=== PATIENT | female | born 1990 | race Caucasian/White ===

== ENCOUNTER 2017-05-26 01:24 | Emergency (ER) | payer BC ==
[~2017-05-26] VITALS: Ht 165.1 cm; Wt 65.3 kg
[~2017-05-26 01:24] MED LIST: ACYC1CAP8 PO; MTR600X PO; PRENTAB26 PO
[2017-05-26 01:27] VITALS: TEMP 36.7; Ht 165.1 cm; Wt 65.3 kg
[2017-05-26] MEDS ORDERED: KETOROLAC TROMETHAMINE 30 MG/ML VIAL IV STA (01:38)
[2017-05-26] MEDS ORDERED: SODIUM CHLORIDE 0.9% 1000ML 1,000 ML IV STA (01:38)
[2017-05-26 01:40] VITALS: O2SAT 99
[2017-05-26] MEDS ORDERED: GI COCKTAIL PO STA (01:40)
[2017-05-26] MEDS ORDERED: RANITIDINE HCL SYRUP 150 MG/10 ML UDC PO ONE (01:45)
[2017-05-26] MEDS ORDERED: ALUMINUM/MAGNESIUM SUSP 30 ML UDC ONE (01:49)
[2017-05-26] MEDS ORDERED: LIDOCAINE HCL 2% VISC SOLN 20 ML UDC ONE (01:49)
[2017-05-26 01:58] LABS: BASO % 0.3 %; BASO ABS # 0.03 K/uL (0-0.2); COMPLETE YES; EOS % 0.9 %; HEMATOCRIT 41.2 % (37-47); IG% 0.2 %; LYMPH % 23.3 %; LYMPH ABS # 2.53 K/uL (1.2-3.4); MEAN CELL VOLUME 86.6 fL (80-100); MEAN CORPUSCULAR HEMOGLOBIN 27.7 pg (25-34); MEAN PLATELET VOLUME 10.9 fL (7.4-10.4); MONO % 8.5 %; NEUT % 66.8 %; PLATELET COUNT 278 K/uL (130-400); RED BLOOD COUNT 4.76 M/uL (4.2-5.4); WHITE BLOOD COUNT 10.86 K/uL (4.8-10.8)
[2017-05-26] MEDS ORDERED: BCPILLS PO (02:01)
[2017-05-26 02:19] LABS: BLOOD UREA NITROGEN 11 mg/dl (7-18); BUN/CREATININE RATIO 14.4 (10-20); CALCIUM 9.4 mg/dl (8.5-10.1); CARBON DIOXIDE 28 mmol/L (21-32); CHLORIDE 107 mmol/L (98-107); GLUCOSE 84 mg/dl (70-99); POTASSIUM 3.8 mmol/L (3.5-5.1); SODIUM 140 mmol/L (136-145)
--- NOTE | 2017-05-26 02:55 | EMERGENCY ROOM VISIT NOTE ---
History Report prepared by Mamiibvitaliy: Hudson Walker Under the Supervision of: Dr. Bjorn Jha M.D. First contact with patient: 01:30 Chief Complaint: CHEST PAIN Stated Complaint: CHEST PAIN History of Present Illness The patient is a 26 year old female who presents to the Emergency Room with complaints of persistent centralized chest pain beginning a few hours ago. She states that her pain moves into her throat when she leans forward. Her pain is worsened with deep breathing. The patient has no history of GERD. She denies eating a large amount of ibuprofen, drinking alcohol, or eating spicy foods. She denies any recent exposure to chemicals. The patient denies any recent injury, straining or trauma. She denies any nausea, back pain or abdominal pain. She denies any cold-like symptoms, but notes that her has some respiratory symptoms. The patient is on control. She denies any recent travel or surgery. Source of History: patient Onset: A few hours ago Position: chest (centralized) Timing: other (persistent) Modifying Factors (Worsening): breathing (deep) Associated Symptoms: No nausea, No abdominal pain, No back pain Review of Systems See HPI for pertinent positives & negatives. A total of 10 systems reviewed and were otherwise negative. Past Medical & Surgical Medical Problems: (1) Dyslipidemia (2) Genital Herpes Nos (3) Near syncope (4) Post-dates (5) R/O ROM Surgical Problems: (1) [place] teeth extracted Family History No pertinent family history stated. Social History Smoking Status: Never Smoker Alcohol Use: occasionally Marital Status: Housing Status: lives with family Occupation Status: employed Current/Historical Medications Scheduled Control Pills ( Control Pills), 1 TAB PO DAILY Allergies Coded Allergies: No Known Allergies (Verified , 05/26/17) Physical Exam Vital Signs Date Time Temp Pulse Resp B/P (MAP) Pulse Ox O2 Delivery O2 Flow Rate FiO2 05/26/17 03:04 65 17 105/71 99 Room Air 05/26/17 02:25 66 14 112/66 100 Room Air 05/26/17 01:40 99 Room Air 05/26/17 01:32 Room Air 05/26/17 01:27 36.7 84 16 138/87 99 Room Air Physical Exam GENERAL: Patient is well appearing and in no acute distress. HEENT: No acute trauma, normocephalic atraumatic, mucous membranes moist, no nasal congestion, no scleral icterus. NECK: No stridor, no adenopathy, no meningismus, trachea is midline. LUNGS: No dyspnea. Clear to auscultation and equal bilaterally. No wheeze, no rhonchi. HEART: Regular rate and rhythm. No murmurs, rubs, gallops appreciated. ABDOMEN: Soft, nontender, bowel sounds positive, no masses appreciated, no peritonitis. BACK: No midline tenderness, no CVA tenderness EXTREMITIES: Normal motion all extremities, no cyanosis, no edema. NEUROLOGIC: Alert and oriented, no acute motor or sensory deficits, no focal weakness, cranial nerves grossly intact. SKIN: No rash, no jaundice, no diaphoresis. Medical Decision & Procedures ER Provider Diagnostic Interpretation: X ray results are stated below per my interpretation: Chest: 1 view: No infiltrate, no effusion, normal cardiac border. Laboratory Results 05/26/17 01:40 Red Blood Count 4.76, Mean Corpuscular Volume 86.6, Mean Corpuscular Hemoglobin 27.7, Mean Corpuscular Hemoglobin Concent 32.0, Mean Platelet Volume 10.9, Neutrophils (%) (Auto) 66.8, Lymphocytes (%) (Auto) 23.3, Monocytes (%) (Auto) 8.5, Eosinophils (%) (Auto) 0.9, Basophils (%) (Auto) 0.3, Neutrophils # (Auto) 7.26, Lymphocytes # (Auto) 2.53, Monocytes # (Auto) 0.92, Eosinophils # (Auto) 0.10, Basophils # (Auto) 0.03 05/26/17 01:40 Test 05/26/17 01:40 White Blood Count 10.86 K/uL (4.8-10.8) Red Blood Count 4.76 M/uL (4.2-5.4) Hemoglobin 13.2 g/dL (12.0-16.0) Hematocrit 41.2 % (37-47) Mean Corpuscular Volume 86.6 fL (80-100) Mean Corpuscular Hemoglobin 27.7 pg (25-34) Mean Corpuscular Hemoglobin Concent 32.0 g/dl (32-36) Platelet Count 278 K/uL (130-400) Mean Platelet Volume 10.9 fL (7.4-10.4) Neutrophils (%) (Auto) 66.8 % Lymphocytes (%) (Auto) 23.3 % Monocytes (%) (Auto) 8.5 % Eosinophils (%) (Auto) 0.9 % Basophils (%) (Auto) 0.3 % Neutrophils # (Auto) 7.26 K/uL (1.4-6.5) Lymphocytes # (Auto) 2.53 K/uL (1.2-3.4) Monocytes # (Auto) 0.92 K/uL (0.11-0.59) Eosinophils # (Auto) 0.10 K/uL (0-0.5) Basophils # (Auto) 0.03 K/uL (0-0.2) RDW Standard Deviation 41.7 fL (36.4-46.3) RDW Coefficient of Variation 13.1 % (11.5-14.5) Immature Granulocyte % (Auto) 0.2 % Immature Granulocyte # (Auto) 0.02 K/uL (0.00-0.02) D-Dimer < 190 ug/L FEU (0-500) Anion Gap 5.0 mmol/L (3-11) Est Creatinine Clear Calc Drug Dose 94.2 ml/min Estimated GFR () 116.3 Estimated GFR (Non- 100.3 BUN/Creatinine Ratio 14.4 (10-20) Calcium Level 9.4 mg/dl (8.5-10.1) Troponin I < 0.015 ng/ml (0-0.045) Laboratory results as reviewed by me. Medications Administered Medications (Trade) Dose Ordered Sig/Dennis Route Start Time Stop Time Status Last Admin Dose Admin Ketorolac Tromethamine (Toradol Inj) 30 mg NOW STAT IV 05/26/17 01:38 05/26/17 01:39 DC 05/26/17 01:54 30 MG Sodium Chloride 1,000 ml @ 999 mls/hr Q1H1M STAT IV 05/26/17 01:38 05/26/17 02:38 DC 05/26/17 01:54 999 MLS/HR Ranitidine HCl (zANTac SYRUP) 150 mg NOW ONCE PO 05/26/17 01:45 05/26/17 01:46 DC 05/26/17 01:52 150 MG Al Hydroxide/Mg Hydroxide (Maalox Susp) 30 ml STK-MED ONCE .ROUTE 05/26/17 01:49 05/26/17 01:50 DC 05/26/17 01:52 30 ML Lidocaine HCl (Viscous Lidocaine 2% Soln) 20 ml STK-MED ONCE .ROUTE 05/26/17 01:49 05/26/17 01:50 DC 05/26/17 01:52 20 ML ECG Indication: chest pain Rate (beats per minute): 71 Rhythm: normal sinus Findings: no acute ischemic change, no ectopy Comparison ECG Date: July 15, 2015 Change: no significant change ED Course 0133: The patient was evaluated in room B4B. A complete history and physical exam was performed. 0138: Ordered Sodium Chloride 1000 ml @ 999 mls/hr IV, Toradol Inj 30 mg IV. 0140: Ordered GI cocktail 24 mL PO. 0145: Ordered Zantac Syrup 150 mg PO. 0253: Reevaluated the patient. She still has some discomfort with deep breathing , but feels better. Discussed results and discharge instructions: she verbalized understanding and agreement. The patient is ready for discharge. Medical Decision Differential: Cardiac Ischemia (STEMI, NSTEMI, Unstable Angina, etc), Aortic Dissection, Arrhythmia, Pulmonary Embolism, Pneumonia, Pneumothorax, MSK, Infectious, Pericarditis/Myocarditis, Esophageal Rupture, Gastrointestinal, amongst other pathologies entertained. Pleasnat 26 yr old femael with pleuritic anterior sternal chest pain. No effect with GI cocktail though mildly improved with toradol. CXR clear, ekg unremarkable, Trop negative, dimer negative and otherwise labs unremarkable. Suspect this is costochondritis. I do not fee this is ACS, Dissection, PE. Pericarditis unlikely with unremarkable ekg. No epigastric TTP. NSAIDs and rest/fluids at home. RTED if worsening or other concerns. Medication Reconcilliation Current Medication List: was personally reviewed by me Blood Pressure Screening Patient's blood pressure: Elevated blood pressure Blood pressure disposition: Elevated BP felt to be situational Impression Primary Impression: Anterior pleuritic pain Scribe Attestation The scribe's documentation has been prepared under my direction and personally reviewed by me in its entirety. I confirm that the note above accurately reflects all work, treatment, procedures, and medical decision making performed by me. Departure Information Dispostion Home / Self-Care Referrals Evon Easton (PCP) Patient Instructions ED Chest Pain Costochondritis, My [facility]
[2017-05-26 03:04] VITALS: BP 105/71; PULSE 65; O2SAT 99
--- NOTE | 2017-05-26 07:19 | DIAGNOSTIC IMAGING REPORT ---
SINGLE VIEW CHEST CLINICAL HISTORY: Atypical chest pain. FINDINGS: An AP, portable, upright chest radiograph is compared to chest x-ray and chest CT dated 07/15/2015. The examination is degraded by portable technique and patient rotation. The cardiomediastinal silhouette is unremarkable. The lungs and pleural spaces are clear. No pneumothorax is seen. The bony thorax is grossly intact. IMPRESSION: No active disease in the chest. Electronically signed by: Leonidas Arias M.D. 05/26/2017 7:18 AM Dictated Date/Time: 05/26/2017 7:17 AM
== END 2017-05-26 03:09 | disposition home or self-care (01) ==
LOC: C.EDB 01:25
DX: R07.81 Pleurodynia (principal); E78.5 Hyperlipidemia, unspecified

== ENCOUNTER 2017-11-28 17:30 | Emergency (ER) | payer BC, OTHER ==
[~2017-11-28] VITALS: Ht 160 cm; Wt 64.0 kg
[~2017-11-28 17:30] MED LIST changes: -ACYC1CAP8 PO; +BCPILLS PO; -MTR600X PO; -PRENTAB26 PO
[2017-11-28 17:31] VITALS: TEMP 36.3; Ht 160 cm; Wt 64.0 kg
[2017-11-28 17:58] VITALS: O2SAT 97
[2017-11-28 18:03] LABS: BASO % 0.4 %; BASO ABS # 0.03 K/uL (0-0.2); EOS % 1.1 %; EOS ABS # 0.09 K/uL (0-0.5); HEMATOCRIT 39.2 % (37-47); HEMOGLOBIN 13.4 g/dL (12.0-16.0); IG# 0.02 K/uL (0.00-0.02); LYMPH % 20.2 %; LYMPH ABS # 1.68 K/uL (1.2-3.4); MEAN CELL VOLUME 85.8 fL (80-100); MEAN CORPUSCULAR HEMOGLOBIN 29.3 pg (25-34); MEAN CORPUSCULAR HGB CONC 34.2 g/dl (32-36); MEAN PLATELET VOLUME 10.8 fL (7.4-10.4); MONO % 6.3 %; MONO ABS # 0.52 K/uL (0.11-0.59); NEUT % 71.8 %; NEUT ABS # 5.96 K/uL (1.4-6.5); PLATELET COUNT 253 K/uL (130-400); RED CELL DISTRIBUTION WIDTH CV 13.1 % (11.5-14.5); RED CELL DISTRIBUTION WIDTH SD 41.3 fL (36.4-46.3)
[2017-11-28] MEDS ORDERED: KETOROLAC TROMETHAMINE 30 MG/ML VIAL IV STA (18:04)
[2017-11-28 18:20] LABS: ALBUMIN 3.5 gm/dl (3.4-5.0); CALCIUM 8.7 mg/dl (8.5-10.1); CREATININE 0.83 mg/dl (0.60-1.20); POTASSIUM 3.7 mmol/L (3.5-5.1)
[2017-11-28 18:31] LABS: TOTAL PROTEIN 7.2 gm/dl (6.4-8.2)
--- NOTE | 2017-11-28 19:25 | DIAGNOSTIC IMAGING REPORT ---
CHEST 2 VIEWS ROUTINE CLINICAL HISTORY: 27 years-old Female presenting with Palpitations. Rapid heart rate. . TECHNIQUE: PA and lateral views of the chest were obtained. COMPARISON: 05/26/2017 FINDINGS: Cardiomediastinal silhouette normal. Lungs and pleural spaces clear. Osseous structures normal. Upper abdomen normal. IMPRESSION: 1. No acute cardiopulmonary disease. Electronically signed by: Demarcus Parsons M.D. 11/28/2017 7:23 PM Dictated Date/Time: 11/28/2017 7:23 PM
[2017-11-28 20:12] VITALS: BP 122/80; PULSE 68; O2SAT 98
--- NOTE | 2017-11-28 21:58 | EMERGENCY ROOM VISIT NOTE ---
History First contact with patient: 17:36 Chief Complaint: CARDIAC ASSESSMENT Stated Complaint: HEAVINESS OF CHEST Nursing Triage Summary: pt c/o chest heaviness since last night and rapid heart rate that went away. no other complaints of SOB cough or cold History of Present Illness The patient is a 27 year old female who presents to the Emergency Room with complaints of episodes of palpitations and chest heaviness that initially began last night. Patient states that her palpitations improved, but she still has a strange sensation in her chest. She does not have distinct fever, chills, coughing, or shortness of breath. Activity does not appear to improve or worsen her symptoms. The patient considers himself usually healthy. She does take control but does not have recent travel history. She is not reporting pain in her neck, abdomen, or extremities. She rates her current discomfort a 4/10. Review of Systems More than 10 systems were reviewed and otherwise negative with the exception of history of present illness. Past Medical/Surgical History Medical Problems: (1) Dyslipidemia (2) Genital Herpes Nos (3) Near syncope (4) Post-dates (5) R/O ROM Surgical Problems: (1) [place] teeth extracted Social History Smoking Status: Never Smoker Alcohol Use: occasionally Marital Status: Housing Status: lives with family Occupation Status: employed Current/Historical Medications Scheduled Control Pills ( Control Pills), 1 TAB PO DAILY Physical Exam Vital Signs Date Time Temp Pulse Resp B/P (MAP) Pulse Ox O2 Delivery O2 Flow Rate FiO2 11/28/17 20:12 68 122/80 98 11/28/17 18:25 60 114/82 98 Room Air 11/28/17 18:03 63 11/28/17 17:58 97 Room Air 11/28/17 17:56 98 Room Air 11/28/17 17:31 36.3 72 18 134/88 99 Physical Exam VITALS: Vitals are noted on the nurse's note and reviewed by myself. Vital signs stable. GENERAL: Well-developed, well-nourished, white female who appears mildly anxious but pleasant and cooperative. HEAD: Normocephalic atraumatic. EARS: External ear normal. External auditory canals clear, tympanic membranes pearly ye without erythema or effusion bilaterally. EYES: Pupils equal round and reactive to light and accommodation. Conjunctivae without injection, sclerae without icterus. Extraocular movements intact. NOSE: Patent, turbinates without inflammation or discharge. MOUTH: Mucous membranes moist. Tonsils are not enlarged. Pharynx without erythema, blood, or exudate. Uvula midline. Airway patent. NECK: Supple without nuchal rigidity. No lymphadenopathy. No thyromegaly. Cervical spine is nontender. HEART: Regular rate and rhythm without murmurs gallops or rubs. LUNGS: Clear to auscultation bilaterally without wheezes, rales or rhonchi. No retractions or accessory muscle use. ABDOMEN: Positive normal bowel sounds x 4. Soft, nontender, without masses or organomegaly. No guarding or rebound tenderness. MUSCULOSKELETAL: No muscle atrophy, erythema, or edema noted. Full range of motion in all extremities. NEURO: Patient was alert and oriented to person place and time. CN II through XII grossly intact. Medical Decision & Procedures ER Provider Diagnostic Interpretation: CHEST 2 VIEWS ROUTINE CLINICAL HISTORY: 27 years-old Female presenting with Palpitations. Rapid heart rate. . TECHNIQUE: PA and lateral views of the chest were obtained. COMPARISON: 05/26/2017 FINDINGS: Cardiomediastinal silhouette normal. Lungs and pleural spaces clear. Osseous structures normal. Upper abdomen normal. IMPRESSION: 1. No acute cardiopulmonary disease. Laboratory Results 11/28/17 17:50 Red Blood Count 4.57, Mean Corpuscular Volume 85.8, Mean Corpuscular Hemoglobin 29.3, Mean Corpuscular Hemoglobin Concent 34.2, Mean Platelet Volume 10.8, Neutrophils (%) (Auto) 71.8, Lymphocytes (%) (Auto) 20.2, Monocytes (%) (Auto) 6.3, Eosinophils (%) (Auto) 1.1, Basophils (%) (Auto) 0.4, Neutrophils # (Auto) 5.96, Lymphocytes # (Auto) 1.68, Monocytes # (Auto) 0.52, Eosinophils # (Auto) 0.09, Basophils # (Auto) 0.03 11/28/17 17:50 Test 11/28/17 17:50 11/28/17 17:56 11/28/17 18:35 White Blood Count 8.30 K/uL (4.8-10.8) Red Blood Count 4.57 M/uL (4.2-5.4) Hemoglobin 13.4 g/dL (12.0-16.0) Hematocrit 39.2 % (37-47) Mean Corpuscular Volume 85.8 fL (80-100) Mean Corpuscular Hemoglobin 29.3 pg (25-34) Mean Corpuscular Hemoglobin Concent 34.2 g/dl (32-36) Platelet Count 253 K/uL (130-400) Mean Platelet Volume 10.8 fL (7.4-10.4) Neutrophils (%) (Auto) 71.8 % Lymphocytes (%) (Auto) 20.2 % Monocytes (%) (Auto) 6.3 % Eosinophils (%) (Auto) 1.1 % Basophils (%) (Auto) 0.4 % Neutrophils # (Auto) 5.96 K/uL (1.4-6.5) Lymphocytes # (Auto) 1.68 K/uL (1.2-3.4) Monocytes # (Auto) 0.52 K/uL (0.11-0.59) Eosinophils # (Auto) 0.09 K/uL (0-0.5) Basophils # (Auto) 0.03 K/uL (0-0.2) RDW Standard Deviation 41.3 fL (36.4-46.3) RDW Coefficient of Variation 13.1 % (11.5-14.5) Immature Granulocyte % (Auto) 0.2 % Immature Granulocyte # (Auto) 0.02 K/uL (0.00-0.02) Anion Gap 8.0 mmol/L (3-11) Est Creatinine Clear Calc Drug Dose 90.0 ml/min Estimated GFR () 110.4 Estimated GFR (Non- 95.3 BUN/Creatinine Ratio 15.3 (10-20) Calcium Level 8.7 mg/dl (8.5-10.1) Total Bilirubin 0.3 mg/dl (0.2-1) Aspartate Amino Transf (AST/SGOT) 15 U/L (15-37) Alanine Aminotransferase (ALT/SGPT) 20 U/L (12-78) Alkaline Phosphatase 62 U/L (45-117) Total Protein 7.2 gm/dl (6.4-8.2) Albumin 3.5 gm/dl (3.4-5.0) Globulin 3.7 gm/dl (2.5-4.0) Albumin/Globulin Ratio 1.0 (0.9-2) Lipase 337 U/L (73-393) Thyroid Stimulating Hormone (TSH) 1.850 uIu/ml (0.300-4.500) Bedside D-Dimer 170 ng/mlFEU (0-450) Bedside Troponin I < 0.030 ng/ml (0-0.045) Urine Color YELLOW Urine Appearance TURBID (CLEAR) Urine pH 7.0 (4.5-7.5) Urine Specific [place] 1.022 (1.000-1.030) Urine Protein NEG (NEG) Urine Glucose (UA) NEG (NEG) Urine Ketones NEG (NEG) Urine Occult Blood NEG (NEG) Urine Nitrite NEG (NEG) Urine Bilirubin NEG (NEG) Urine Urobilinogen NEG (NEG) Urine Leukocyte Esterase NEG (NEG) Urine WBC (Auto) 1-5 /hpf (0-5) Urine RBC (Auto) 0-4 /hpf (0-4) Urine Hyaline Casts (Auto) 1-5 /lpf (0-5) Urine Epithelial Cells (Auto) 10-20 /lpf (0-5) Urine Bacteria (Auto) NEG (NEG) Urine Test NEG (NEG) Medications Administered Medications (Trade) Dose Ordered Sig/Dennis Route Start Time Stop Time Status Last Admin Dose Admin Ketorolac Tromethamine (Toradol Inj) 30 mg NOW STAT IV 11/28/17 18:04 11/28/17 18:05 DC 11/28/17 18:23 30 MG ECG Per My Interpretation Change: Sinus rhythm with Premature supraventricular complexes @71 bpm Septal infarct (cited on or before 24-JAN-2015) Abnormal ECG When compared with ECG of 26-MAY-2017 01:34, No significant change was found ED Course Physical exam and history were performed. Nursing notes, EMR, and Medication List were personally reviewed. Patient appears to have chest discomfort as well as some palpitations that began last evening. On examination the patient does appear mildly anxious, but is overall comfortable and cooperative. IV access was established and labs were obtained. The patient was hydrated and medicated as above. Her EKG is similar to previous. Chest x-ray was performed and she was placed on the centrifugal machine tender. The patient's blood work is as above and was reviewed. She does not have a significantly elevated white blood cell count, gross anemia, bandemia, or significant electrolyte imbalance. Lipase and transaminases are not diagnostic. Troponin and d-dimer 1 are both negative. Urine is without evidence of infection or . Chest x-ray does not show significant acute findings per my radiology interpretation. The patient remained in normal sinus rhythm while on the centrifugal machine tender. Overall the patient appears well for discharge home. We did have a lengthy discussion regarding options of care. Her symptoms could be related to anxiety , but may represent GERD or possibly even costochondritis. The patient was encouraged to use [id number] Prilosec and consider Tums. She may benefit from follow-up with her primary care physician as a Holter or event monitor might not be unreasonable. The patient was pleased with this discussion and with her care today. She was discharged home and rated her discomfort as 0/10 at the time of departure. The chart was completed utilizing [employer] Voice Recognition Software. Grammatical errors, random word insertions, pronoun errors, and incomplete sentences are an occasional consequence of this system due to software limitations, ambient noise, and hardware issues. Any formal questions or concerns about the content, text, or information contained within the body of this dictation should be directly addressed to the provider for clarification. . Medical Decision Differential diagnosis includes, but is not limited to: Myocardial infarction, dysrhythmia, pericarditis, pneumothorax, aortic aneurysm/dissection, DVT/PE, anxiety, GERD, PUD, electrolyte imbalance, thyroid disorder, pneumonia, bronchitis, pancreatitis, and others Impression Primary Impression: Chest pain Departure Information Dispostion Home / Self-Care Condition GOOD Forms IMPORTANT VISIT INFORMATION Patient Instructions My [facility] Additional Instructions You were seen and evaluated today on an emergency basis only. This is not a substitute for, or an effort to provide, complete comprehensive medical care. It is not possible to recognize and treat all injuries or illnesses in a single emergency department visit. For this reason it is recommended that you followup with your primary care physician this week for recheck of your condition. Drink plenty of fluids and remain well-hydrated. Consider using [id number] Prilosec (omeprazole) for the next 2 weeks. You may also use Tums or similar products as needed. You are welcome to return to the emergency department anytime with new, worsening, or concerning symptoms.
== END 2017-11-28 20:13 | disposition home or self-care (01) ==
LOC: C.EDB 17:30 → C.EDA 20:13
DX: R07.89 Other chest pain (principal); Z79.3 Long term (current) use of hormonal contraceptives